=== PATIENT | male | born 1945 | race Caucasian/White ===

== ENCOUNTER → 2020-09-26 | Day surgery (SDC) | payer OTHER ==
[2020-09-26] VITALS (7 sets, daily range): BP systolic 152–169; BP diastolic 78–98
[~2020-09-26] VITALS: Ht 180.3 cm; Wt 91.6 kg
[~2020-09-26] MED LIST: ATENOLOL50 MG PO; BENZOCAINE 20% SPR 60 ML CAN ONE; CRESTOR10 MG PO; FAMOTIDINE 20 MG/2 ML VIAL IV ONE; FENTANYL CITRATE/PF 100MCG/2 ML INJ ONE; HYDROCHLOROTHIA25 MG PO; MIDAZOLAM HCL 2 MG/2 ML VIAL ONE; SODIUM CHLORIDE 0.9% 1000ML 1,000 ML ONE; SODIUM CHLORIDE 0.9% 50ML 50 ML ONE; VASOTEC10 M1 PO; XARELTO20 MG PO
[2020-09-26 11:58] LABS: BASOPHILS # (AUTO) 0.1 (0.0-0.1); BASOPHILS % 1.1 % (0.0-1.0); EOSINOPHILS # (AUTO) 0.1 (0.0-0.4); EOSINOPHILS % 1.3 % (0.0-6.0); HEMATOCRIT 43.6 % (38.2-49.6); HEMOGLOBIN 13.9 g/dL (14.0-18.0); LYMPHOCYTES # (AUTO) 2.5 (1.0-3.2); LYMPHOCYTES % 35.5 % (18.0-39.1); MEAN CORPUSCULAR HEMOGLOBIN 29.2 pg (28-32); MEAN CORPUSCULAR HGB CONC 31.9 g/dL (31-35); MEAN CORPUSCULAR VOLUME 91.6 fL (81-99); MONOCYTES # (AUTO) 0.8 (0.2-0.8); NEUTROPHILS # (AUTO) 3.6 (2.1-6.9); PLATELET COUNT 230 x10e3/uL (140-360); RED BLOOD COUNT 4.76 x10e6/uL (4.3-5.7); RED CELL DISTRIBUTION WIDTH 12.9 % (11.7-14.4)
[2020-09-26 12:24] LABS: ANION GAP 14.6 mmol/L (8-16); CALCIUM 9.6 mg/dL (8.4-10.2); CREATININE, SERUM 1.25 mg/dL (0.72-1.25); POTASSIUM 3.6 mmol/L (3.5-5.1)
[2020-09-26 12:34] LABS: ALBUMIN 3.9 g/dL (3.5-5.0)
== END | disposition home or self-care (01) ==
LOC: CATH LAB 14:40
PROVIDERS: ATTEND Internal Medicine Interventional Cardiology
DX: I48.19 Other persistent atrial fibrillation (principal); I82.493 Acute embolism and thrombosis of other specified deep vein of lower extremity, bilateral; I07.1 Rheumatic tricuspid insufficiency; I37.1 Nonrheumatic pulmonary valve insufficiency; I70.0 Atherosclerosis of aorta; I10 Essential (primary) hypertension; E78.00 Pure hypercholesterolemia, unspecified; I71.4 Abdominal aortic aneurysm, without rupture; I73.9 Peripheral vascular disease, unspecified; R09.89 Other specified symptoms and signs involving the circulatory and respiratory systems; Z01.812 Encounter for preprocedural laboratory examination; Z20.828 Contact with and (suspected) exposure to other viral communicable diseases; Z79.82 Long term (current) use of aspirin; Z79.02 Long term (current) use of antithrombotics/antiplatelets; Z68.30 Body mass index [BMI] 30.0-30.9, adult
CPT/HCPCS: 36415; 80053; 85025; 93307; 93325; J2250; J3010; J7030; U0002; 93312; 93320